=== PATIENT | female | born 1985 | race Caucasian/White ===

== ENCOUNTER 2022-08-27 14:57 | Outpatient (CLI) | payer MEDICAID, SELFPAY | END 2022-08-27 14:58 | disposition home or self-care (01) | LOC: LKVREF 08-30 12:40 | PROVIDERS: Visit Provider Nurse Practitioner Family | DX: R30.0 Dysuria (principal); N39.0 Urinary tract infection, site not specified | CPT/HCPCS: 87086; 87186 ==